=== PATIENT | female | born 1940 | race Hispanic/Latino ===

== ENCOUNTER 2019-01-30 14:30 | Emergency (ER) | payer OTHER ==
[2019-01-30] MEDS ORDERED: TETANUS/DIPHTHERIA TOXOID [ADULT] 0.5 ML VIAL IM ONE (15:05)
== END 2019-01-30 15:56 | disposition home or self-care (01) ==
LOC: EDH 14:30
DX: S93.602A Unspecified sprain of left foot, initial encounter (principal); S93.402A Sprain of unspecified ligament of left ankle, initial encounter; S80.02XA Contusion of left knee, initial encounter; S50.812A Abrasion of left forearm, initial encounter; I10 Essential (primary) hypertension; E78.5 Hyperlipidemia, unspecified; Z88.6 Allergy status to analgesic agent; W18.39XA Other fall on same level, initial encounter; Y93.89 Activity, other specified; Y92.89 Other specified places as the place of occurrence of the external cause; Y99.8 Other external cause status
CPT/HCPCS: 73610; 73630; 90471; 90714

== ENCOUNTER 2019-04-21 15:18 | Inpatient (IN) | payer OTHER, MEDICARE ==
[~2019-04-21] VITALS: Ht 165.1 cm; Wt 50.0 kg
[2019-04-21 16:27] LABS: BASOPHILS % (AUTO) 0.5 % (0.0-5.0); EOSINOPHILS % (AUTO) 0.9 % (0.0-8.0); HEMATOCRIT 40.7 % (36-48); LYMPHOCYTES % (AUTO) 38.9 % (21.0-51.0); MEAN CORPUSCULAR HEMOGLOBIN 27.9 pg (27.0-33.0); MEAN CORPUSCULAR HGB CONC 33.2 g/dL (32.0-36.0); MONOCYTES % (AUTO) 10.2 % (3.0-13.0); NEUTROPHILS % (AUTO) 49.5 % (40.0-77.0); PLATELET COUNT (AUTO) 197 K/uL (130-400); RED BLOOD CELL COUNT(AUTO) 4.84 MIL/uL (4.00-5.50); RED CELL DISTRIBUTION WIDTH 13.5 % (11.0-15.5)
[2019-04-21 16:36] LABS: INR 0.93 (0.85-1.15); PARTIAL THROMBOPLASTIN TIME 29.1 SEC (26.3-35.5); PROTHROMBIN TIME 9.8 SEC (9.6-11.6)
[2019-04-21 16:47] LABS: ALBUMIN 3.9 g/dL (3.5-5.0); BILIRUBIN,TOTAL 0.4 mg/dL (0.2-1.0); CREATININE 0.8 mg/dL (0.5-1.5); POTASSIUM 3.8 mmol/L (3.5-5.1); TOTAL PROTEIN, SERUM 7.7 g/dL (6.0-8.3)
[2019-04-21] MEDS ORDERED: METOPROLOL TARTRATE 1 MG/ML 5ML VIAL IV ONE (16:55)
[2019-04-21] MEDS ORDERED: LABETALOL HCL 5 MG/ML 20ML VIAL IV ONE (18:23)
[2019-04-21 20:17] VITALS: BP 169/91
[2019-04-21] MEDS ORDERED: TRAM50TA4 PO (21:18)
[2019-04-21] MEDS ORDERED: ATOR10 PO (21:20)
[2019-04-21] MEDS ORDERED: LOSA50TA64 PO (21:20)
[2019-04-21] MEDS ORDERED: PANT40TA PO (21:20)
[2019-04-21] MEDS: TRAMADOL HCL 50 MG TABLET PO PRN (21:30)
[2019-04-21 23:20] VITALS: BP 162/71
[2019-04-21] MEDS ORDERED: ALPRAZOLAM 0.25 MG TABLET ONE (23:52)
[2019-04-22] MEDS ORDERED: ONDANSETRON HCL 4 MG/2 ML VIAL IVP PRN (00:15)
[2019-04-22] MEDS: SODIUM CHLORIDE 0.9% 1000ML 1,000 ML IV SCH ×2 (00:15→12:45)
[2019-04-22] MEDS ORDERED: LABETALOL 20 MG/4 ML DISP.SYRIN IV PRN (00:15)
[2019-04-22 04:28] VITALS: BP 148/94
[2019-04-22 04:56] LABS: HEMATOCRIT 38.4 % (36-48); MEAN CORPUSCULAR HEMOGLOBIN 27.9 pg (27.0-33.0); MEAN CORPUSCULAR HGB CONC 33.1 g/dL (32.0-36.0); PLATELET COUNT (AUTO) 178 K/uL (130-400); RED BLOOD CELL COUNT(AUTO) 4.56 MIL/uL (4.00-5.50); RED CELL DISTRIBUTION WIDTH 13.5 % (11.0-15.5); WHITE BLOOD COUNT (AUTO) 5.4 K/uL (4.8-10.8)
[2019-04-22 05:34] LABS: ALBUMIN 3.4 g/dL (3.5-5.0); BILIRUBIN,TOTAL 0.4 mg/dL (0.2-1.0); CREATININE 0.7 mg/dL (0.5-1.5); MAGNESIUM 2.1 mg/dL (1.80-2.40); PHOSPHORUS 3.4 mg/dL (2.5-4.9); POTASSIUM 4.3 mmol/L (3.5-5.1); TOTAL PROTEIN, SERUM 6.6 g/dL (6.0-8.3)
[2019-04-22] MEDS: TRAMADOL HCL 50 MG TABLET PO PRN (07:48)
[2019-04-22] MEDS: FAMOTIDINE/PF 20 MG/2 ML VIAL IV SCH (07:48)
[2019-04-22] MEDS: LOSARTAN 50 MG TABLET PO SCH (07:48)
[2019-04-22] MEDS: ATORVASTATIN CALCIUM 40 MG TABLET PO SCH (07:48)
--- NOTE | 2019-04-22 07:55 | NUR ---
medicated for discomfort to legs.
[2019-04-22 08:00] VITALS: BP 152/88
[2019-04-22 11:47] VITALS: BP 146/79
[2019-04-22] MEDS: ALPRAZOLAM 0.25 MG TABLET PO PRN (16:17)
--- NOTE | 2019-04-22 16:45 | NUR ---
SAAD MET W PT WITH GRANDDAUGHTER GARFIELD AT BEDSIDE LIVES WITH SPOUSE AND ANOTHER GRANDDAUGHTER YOSVANY WHO IS THE GUARDIAN OF BOTH GRANDPARENTS. SPOUSE HAS ALL DME; PT USES A CANE EVERYONE AND A WHILE. NO STAIRS IN THE HOME, BAHTROOM SAFE AND ACCESSIBLE. LAST VISITED PMD YESTERDAY WHO SENT PT TO HOSPITAL. PT EXHIBITING SIGNS OF ASPIRATIONS, LITTLE COUGHING WITH FOOD. PRIMARY RN INFORMED, FOOD REMOVED. JUAN REN CM TO FOLLOW FOR DC NEEDS Addendum: 04/22/19 at 1748 by PARTHA PACE RN CM Amended: Links added.
[2019-04-22 17:00] VITALS: BP 177/90
--- NOTE | 2019-04-22 17:31 | NUR ---
2-D ECHO WITH BUBBLE NOW COMPLETE, ALSO HAD MRI OF HEAD A LITTLE EARLIER. NO OFFICIAL REPORT YET. DR. VALDES WAS SEND A TEXT MESSAGE BY GIS ANALYST NILAY TO GIVE UPDATE ON PT. STATUS.
--- NOTE | 2019-04-22 18:50 | NUR ---
SPOKE WITH PERSON HOG FEEDER FOR BENCHMARK AND ENDORSED MRI REPORT, AM TOLD FINDINGS INSIGNIFICANT AND COULD TELL DR. VALDES TOMORROW.
[2019-04-22 19:18] VITALS: BP 157/83
--- NOTE | 2019-04-22 20:55 | NUR ---
Left sided facial drooping Informed Saman Edwards NP for benchmark that patient had some left sided facial drooping and was having difficulty with swallowing her food. 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 He stated to keep SBP greater than 160 and to only give PRN BP meds if blood pressure is greater than 200.
[2019-04-23] VITALS (7 sets, daily range): BP systolic 153–191; BP diastolic 92–101
[2019-04-23] MEDS: SODIUM CHLORIDE 0.9% 1000ML 1,000 ML IV SCH ×2 (02:55→16:15)
[2019-04-23] MEDS: ATORVASTATIN CALCIUM 40 MG TABLET PO SCH (09:59)
[2019-04-23] MEDS: FAMOTIDINE/PF 20 MG/2 ML VIAL IV SCH (10:07)
[2019-04-23] MEDS: LOSARTAN 50 MG TABLET PO SCH (10:07)
--- NOTE | 2019-04-23 12:00 | NUR ---
uche called for update.read mri report echo and carotid to md via phone. per md recommend cardiology for anticouagulant choice .
[2019-04-24] VITALS (8 sets, daily range): BP systolic 112–196; BP diastolic 63–104
[2019-04-24] MEDS: HYDRALAZINE HCL 20 MG/ML VIAL IV PRN ×2 (03:52→14:35)
[2019-04-24] MEDS: ALPRAZOLAM 0.25 MG TABLET PO PRN ×3 (04:57→22:15)
[2019-04-24] MEDS: SODIUM CHLORIDE 0.9% 1000ML 1,000 ML IV SCH ×2 (05:01→18:55)
[2019-04-24] MEDS: TRAMADOL HCL 50 MG TABLET PO PRN ×2 (06:41→13:35)
[2019-04-24] MEDS ORDERED: LABETALOL 20 MG/4 ML DISP.SYRIN IV SCH (07:30)
[2019-04-24 08:36] LABS: CHOLESTEROL 153 mg/dL (<200); CREATINE KINASE, TOTAL 42 U/L (21-232); HDL CHOLESTEROL 31 mg/dL (35-85); LDL DIRECT 95 mg/dL (0-99); MYOGLOBIN 43 ng/mL (10-92); TRIGLYCERIDES 97 mg/dL (30-200); TROPONIN I < 0.04 ng/mL (0.00-0.06)
[2019-04-24] MEDS: ASPIRIN 81 MG EC TAB PO SCH ×2 (09:00→09:37)
[2019-04-24] MEDS ORDERED: METOPROLOL TARTRATE 25 MG TAB PO SCH (09:00)
[2019-04-24] MEDS ORDERED: ISOSORBIDE MONO 30MG TAB SR PO SCH (09:00)
[2019-04-24] MEDS ORDERED: LABETALOL HCL 5 MG/ML 20ML VIAL IV SCH (09:15)
[2019-04-24] MEDS: LOSARTAN 100 MG TABLET PO SCH (09:35)
[2019-04-24] MEDS: CLOPIDOGREL BISULFATE 75 MG TAB PO SCH (09:37)
[2019-04-24] MEDS: FAMOTIDINE/PF 20 MG/2 ML VIAL IV SCH (09:37)
--- NOTE | 2019-04-24 11:52 | NUR ---
DYSPHAGIA EVAL COMPLETE. -S/S OF ASPIRATION OBSERVED. RECOMMEND MECHANICAL SOFT GROUND TEXTURE AND THIN LIQUIDS. Addendum: 04/24/[address] JESSICA Amended: Links added.
[2019-04-24] MEDS ORDERED: AMLODIPINE BESYLATE 5 MG TAB PO SCH (15:30)
[2019-04-24] MEDS ORDERED: ACETAMINOPHEN 325 MG TAB ONE (17:14)
[2019-04-24] MEDS ORDERED: ATORVASTATIN CALCIUM 20 MG TABLET PO SCH (21:00)
[2019-04-24] MEDS: METOPROLOL TARTRATE 25 MG TAB PO SCH (22:16)
[2019-04-24] MEDS: ACETAMINOPHEN 325 MG TAB PO PRN (22:17)
[2019-04-25 00:20] VITALS: BP 143/75
[2019-04-25 04:04] VITALS: BP 151/86
[2019-04-25] MEDS: ACETAMINOPHEN 325 MG TAB PO PRN (07:40)
[2019-04-25] MEDS ORDERED: ATOR40TA69 PO (07:55)
[2019-04-25] MEDS ORDERED: CLOP75TA32 PO (07:55)
[2019-04-25] MEDS ORDERED: LOSA100T58 PO (07:55)
[2019-04-25] MEDS ORDERED: AMLO5TAB9 PO (07:55)
[2019-04-25] MEDS ORDERED: ASPI-555 PO (07:55)
[2019-04-25] MEDS ORDERED: METO-391 PO (07:55)
[2019-04-25 08:00] VITALS: BP 168/93
[2019-04-25] MEDS ORDERED: AMLODIPINE BESYLATE 5 MG TAB PO SCH (09:00)
[2019-04-25] MEDS: FAMOTIDINE/PF 20 MG/2 ML VIAL IV SCH (10:04)
[2019-04-25] MEDS: ASPIRIN 81 MG EC TAB PO SCH (10:04)
[2019-04-25] MEDS: LOSARTAN 100 MG TABLET PO SCH (10:05)
[2019-04-25] MEDS: CLOPIDOGREL BISULFATE 75 MG TAB PO SCH (10:05)
[2019-04-25] MEDS: METOPROLOL TARTRATE 25 MG TAB PO SCH ×2 (10:06→14:54)
[2019-04-25 12:00] VITALS: BP 154/83
== END 2019-04-25 18:05 | disposition home or self-care (01) | DRG 65 ==
LOC: EDH 15:18 → EDHIP 18:14 → OBSVTOIN 18:14 → 3AH 19:59
PROVIDERS: ADMIT Internal Medicine Critical Care Medicine; ATTEND Internal Medicine Critical Care Medicine
DX: I63.9 Cerebral infarction, unspecified (principal); I16.1 Hypertensive emergency; I25.110 Atherosclerotic heart disease of native coronary artery with unstable angina pectoris; Q21.1 Atrial septal defect; I11.9 Hypertensive heart disease without heart failure; K21.9 Gastro-esophageal reflux disease without esophagitis; E78.5 Hyperlipidemia, unspecified; Z79.82 Long term (current) use of aspirin; Z79.899 Other long term (current) drug therapy; Z88.6 Allergy status to analgesic agent; Z90.710 Acquired absence of both cervix and uterus; Z88.0 Allergy status to penicillin
CPT/HCPCS: 36415; 70450; 70551; 71045; 80053; 80061; 82550; 83735; 83874; 84100; 84484; 85025; 85027; 85610; 85730; 92610; 93005; 93306; 93880; 97039; G0378; J0360; J3490

== ENCOUNTER 2019-05-13 07:24 | Emergency (ER) | payer OTHER, MEDICARE ==
[~2019-05-13 07:24] MED LIST: AMLO5TAB9 PO; ASPI-555 PO; ATOR40TA69 PO; CLOP75TA32 PO; LOSA100T58 PO; METO-391 PO; PANT40TA PO; TRAM50TA4 PO
[2019-05-13 08:04] LABS: BASOPHILS % (AUTO) 0.6 % (0.0-5.0); HEMATOCRIT 40.2 % (36-48); LYMPHOCYTES % (AUTO) 32.5 % (21.0-51.0); MEAN CORPUSCULAR HEMOGLOBIN 27.8 pg (27.0-33.0); MEAN CORPUSCULAR HGB CONC 33.6 g/dL (32.0-36.0); MEAN CORPUSCULAR VOLUME 82.9 fL (79-99); MONOCYTES % (AUTO) 9.1 % (3.0-13.0); NEUTROPHILS % (AUTO) 56.8 % (40.0-77.0); NUCLEATED RED BLOOD CELLS 0.1 % (0.0-0.19); PLATELET COUNT (AUTO) 232 K/uL (130-400); RED BLOOD CELL COUNT(AUTO) 4.85 MIL/uL (4.00-5.50); RED CELL DISTRIBUTION WIDTH 13.1 % (11.0-15.5); WHITE BLOOD COUNT (AUTO) 5.4 K/uL (4.8-10.8)
[2019-05-13 08:12] LABS: CREATININE 0.7 mg/dL (0.5-1.5); POTASSIUM 4.8 mmol/L (3.5-5.1)
[2019-05-13 08:14] LABS: INR 0.94 (0.85-1.15); PARTIAL THROMBOPLASTIN TIME 27.3 SEC (26.3-35.5); PROTHROMBIN TIME 9.9 SEC (9.6-11.6)
[2019-05-13 08:18] LABS: ALBUMIN 3.9 g/dL (3.5-5.0); BILIRUBIN,TOTAL 0.5 mg/dL (0.2-1.0); TOTAL PROTEIN, SERUM 7.7 g/dL (6.0-8.3)
[2019-05-13 08:19] LABS: B-TYPE NATRIURETIC PEPTIDE 194 pg/mL (0-100)
[2019-05-13 09:18] LABS: APPEARANCE,URINE Clear (CLEAR); BILIRUBIN,URINE Negative (NEGATIVE); COLOR,URINE Yellow (YELLOW); GLUCOSE, URINE (UA) Negative (NEGATIVE); KETONES,URINE Negative (NEGATIVE); LEUKOCYTE ESTERASE ,URINE Trace (NEGATIVE); NITRATE,URINE Negative (NEGATIVE); OCCULT BLOOD,URINE Negative (NEGATIVE); PH,URINE 8.5 (5.0-8.0); PROTEIN,URINE Negative (NEGATIVE); UROBILINOGEN,URINE 0.2 mg/dL (0.2-1.0)
[2019-05-13 09:37] LABS: BACTERIA,URINE Rare /HPF (None Seen); RBC,URINE 0-1 /HPF (0-1); SQUAMOUS EPITHELIAL CELL,UR Rare /HPF (0-2); WBC,URINE 0-1 /HPF (0-1)
[2019-05-13] MEDS ORDERED: SODIUM CHLORIDE 0.9% 1000ML 1,000 ML IV ONE (09:52)
== END 2019-05-13 11:40 | disposition home or self-care (01) ==
LOC: EDH 07:24
DX: E86.0 Dehydration (principal); R55 Syncope and collapse; R20.2 Paresthesia of skin; G47.00 Insomnia, unspecified; E78.5 Hyperlipidemia, unspecified; I10 Essential (primary) hypertension; Z88.0 Allergy status to penicillin; Z90.710 Acquired absence of both cervix and uterus; Z90.49 Acquired absence of other specified parts of digestive tract
CPT/HCPCS: 36415; 70450; 71045; 72125; 80053; 81001; 82550; 83880; 84484; 85025; 85610; 85730; 93005; 96360; 99285; J7030

== ENCOUNTER 2019-06-10 15:36 | Emergency (ER) | payer OTHER, MEDICARE ==
[2019-06-10] MEDS ORDERED: MORPHINE SULFATE 4 MG/1ML SYG ONE (16:47)
[2019-06-10] MEDS ORDERED: ONDANSETRON HCL 4 MG/2 ML VIAL ONE (16:48)
[2019-06-10 17:41] LABS: BASOPHILS % (AUTO) 0.2 % (0.0-5.0); EOSINOPHILS % (AUTO) 1.8 % (0.0-8.0); LYMPHOCYTES % (AUTO) 34.8 % (21.0-51.0); MEAN CORPUSCULAR HEMOGLOBIN 27.9 pg (27.0-33.0); MEAN CORPUSCULAR VOLUME 84.7 fL (79-99); MONOCYTES % (AUTO) 8.8 % (3.0-13.0); NEUTROPHILS % (AUTO) 54.4 % (40.0-77.0); NUCLEATED RED BLOOD CELLS 0.1 % (0.0-0.19); PLATELET COUNT (AUTO) 231 K/uL (130-400); RED BLOOD CELL COUNT(AUTO) 4.49 MIL/uL (4.00-5.50); RED CELL DISTRIBUTION WIDTH 13.1 % (11.0-15.5); WHITE BLOOD COUNT (AUTO) 6.1 K/uL (4.8-10.8)
[2019-06-10 17:49] LABS: CREATININE 0.8 mg/dL (0.5-1.5); POTASSIUM 3.5 mmol/L (3.5-5.1)
[2019-06-10 17:54] LABS: ALBUMIN 3.8 g/dL (3.5-5.0); BILIRUBIN,TOTAL 0.5 mg/dL (0.2-1.0); TOTAL PROTEIN, SERUM 7.3 g/dL (6.0-8.3)
[2019-06-10] MEDS ORDERED: IOHEXOL-350 75 ML VIAL IV ONE (18:32)
[2019-06-10] MEDS ORDERED: HYDRALAZINE HCL 20 MG/ML VIAL ONE (19:21)
[2019-06-10 19:45] LABS: APPEARANCE,URINE Clear (CLEAR); BILIRUBIN,URINE Negative (NEGATIVE); COLOR,URINE Yellow (YELLOW); GLUCOSE, URINE (UA) Negative (NEGATIVE); KETONES,URINE Negative (NEGATIVE); LEUKOCYTE ESTERASE ,URINE Small (NEGATIVE); NITRATE,URINE Negative (NEGATIVE); OCCULT BLOOD,URINE Negative (NEGATIVE); PROTEIN,URINE Negative (NEGATIVE); UROBILINOGEN,URINE 0.2 mg/dL (0.2-1.0)
[2019-06-10 19:55] LABS: BACTERIA,URINE Rare /HPF (None Seen); RBC,URINE 0-1 /HPF (0-1); SQUAMOUS EPITHELIAL CELL,UR Rare /HPF (0-2); WBC,URINE 0-1 /HPF (0-1)
== END 2019-06-10 20:11 | disposition home or self-care (01) ==
LOC: EDH 15:36
DX: S20.212A Contusion of left front wall of thorax, initial encounter (principal); I10 Essential (primary) hypertension; E78.5 Hyperlipidemia, unspecified; Z88.6 Allergy status to analgesic agent; Z88.0 Allergy status to penicillin; Z90.710 Acquired absence of both cervix and uterus; Z90.49 Acquired absence of other specified parts of digestive tract; W18.39XA Other fall on same level, initial encounter; Y93.01 Activity, walking, marching and hiking; Y92.89 Other specified places as the place of occurrence of the external cause; Y99.8 Other external cause status
CPT/HCPCS: 36415; 71260; 74177; 80053; 81001; 84484; 85025; 93005; 96374; 96375; 99285; J0360; J2270; J2405; Q9967

== ENCOUNTER 2020-05-21 21:23 | Emergency (ER) | payer OTHER, MEDICARE ==
[~2020-05-21 21:23] MED LIST changes: -ASPI-555 PO; +ASPI-556 PO
[2020-05-21 21:43] LABS: BASOPHILS % (AUTO) 0.3 % (0.0-5.0); EOSINOPHILS % (AUTO) 0.3 % (0.0-8.0); HEMATOCRIT 39.8 % (36-48); LYMPHOCYTES % (AUTO) 23.2 % (21.0-51.0); MEAN CORPUSCULAR HEMOGLOBIN 27.9 pg (27.0-33.0); MEAN CORPUSCULAR HGB CONC 33.4 g/dL (32.0-36.0); MEAN CORPUSCULAR VOLUME 83.4 fL (79-99); MONOCYTES % (AUTO) 8.5 % (3.0-13.0); NEUTROPHILS % (AUTO) 67.4 % (40.0-77.0); PLATELET COUNT (AUTO) 246 K/uL (130-400); RED BLOOD CELL COUNT(AUTO) 4.77 MIL/uL (4.00-5.50); RED CELL DISTRIBUTION WIDTH 12.9 % (11.0-15.5); WHITE BLOOD COUNT (AUTO) 9.4 K/uL (4.8-10.8)
[2020-05-21 21:53] LABS: CREATININE 0.8 mg/dL (0.5-1.5); POTASSIUM 3.6 mmol/L (3.5-5.1)
[2020-05-21 21:57] LABS: BILIRUBIN,TOTAL 0.4 mg/dL (0.2-1.0); TOTAL PROTEIN, SERUM 7.5 g/dL (6.0-8.3)
[2020-05-21] MEDS ORDERED: ONDANSETRON HCL 4 MG/2 ML VIAL ONE (21:59)
[2020-05-21] MEDS ORDERED: MORPHINE SULFATE 4 MG/1ML SYG ONE (22:00)
[2020-05-21] MEDS ORDERED: HYDRALAZINE HCL 20 MG/ML VIAL ONE (22:37)
[2020-05-21 22:44] LABS: APPEARANCE,URINE Clear (CLEAR); BILIRUBIN,URINE Negative (NEGATIVE); COLOR,URINE Yellow (YELLOW); GLUCOSE, URINE (UA) Negative (NEGATIVE); KETONES,URINE Negative (NEGATIVE); LEUKOCYTE ESTERASE ,URINE Negative (NEGATIVE); NITRATE,URINE Negative (NEGATIVE); OCCULT BLOOD,URINE Negative (NEGATIVE); PH,URINE 7.5 (5.0-8.0); PROTEIN,URINE Negative (NEGATIVE); UROBILINOGEN,URINE 0.2 mg/dL (0.2-1.0)
== END 2020-05-22 00:55 | disposition home or self-care (01) ==
LOC: EDH 21:23
DX: K59.00 Constipation, unspecified (principal); I10 Essential (primary) hypertension; E78.5 Hyperlipidemia, unspecified; Z90.49 Acquired absence of other specified parts of digestive tract; Z90.710 Acquired absence of both cervix and uterus; Z88.0 Allergy status to penicillin; Z88.6 Allergy status to analgesic agent
CPT/HCPCS: 36415; 74176; 80053; 81003; 83690; 84484; 85025; 93005; 96374; 96375; 99285; J0360; J2270; J2405

== ENCOUNTER → 2021-01-25 | Outpatient (CLI) | payer OTHER, MEDICARE ==
[~2021-01-25] MED LIST changes: +AMLO-257 PO; -AMLO5TAB9 PO
== END | disposition home or self-care (01) ==
LOC: RAH 12:58
PROVIDERS: ATTEND Family Medicine
DX: R59.0 Localized enlarged lymph nodes (principal); R07.0 Pain in throat
CPT/HCPCS: 76536

== ENCOUNTER 2021-05-02 05:46 | Emergency (ER) | payer OTHER, MEDICARE ==
[~2021-05-02] VITALS: Ht 157.5 cm; Wt 64.4 kg
[2021-05-02 05:57] VITALS: BP 137/73
[2021-05-02] MEDS ORDERED: FAMOTIDINE 20MG VIAL IV ONE (06:00)
[2021-05-02 06:02] LABS: BASOPHILS % (AUTO) 0.1 % (0.0-5.0); EOSINOPHILS % (AUTO) 0.1 % (0.0-8.0); HEMATOCRIT 36.8 % (36-48); LYMPHOCYTES % (AUTO) 27.6 % (21.0-51.0); MEAN CORPUSCULAR HGB CONC 33.4 g/dL (32.0-36.0); MEAN CORPUSCULAR VOLUME 83.6 fL (79-99); MONOCYTES % (AUTO) 7.1 % (3.0-13.0); PLATELET COUNT (AUTO) 226 K/uL (130-400); RED CELL DISTRIBUTION WIDTH 13.4 % (11.0-15.5); WHITE BLOOD COUNT (AUTO) 6.7 K/uL (4.8-10.8)
[2021-05-02 06:15] LABS: CREATININE 0.8 mg/dL (0.5-1.5); POTASSIUM 3.5 mmol/L (3.5-5.1)
[2021-05-02 06:21] LABS: ALBUMIN 3.8 g/dL (3.5-5.0); BILIRUBIN,TOTAL 0.5 mg/dL (0.2-1.0); TOTAL PROTEIN, SERUM 6.9 g/dL (6.0-8.3)
[2021-05-02 06:25] LABS: APPEARANCE,URINE Clear (CLEAR); BILIRUBIN,URINE Negative (NEGATIVE); COLOR,URINE Yellow (YELLOW); GLUCOSE, URINE (UA) Negative (NEGATIVE); KETONES,URINE Negative (NEGATIVE); LEUKOCYTE ESTERASE ,URINE Small (NEGATIVE); NITRATE,URINE Negative (NEGATIVE); OCCULT BLOOD,URINE Negative (NEGATIVE); PH,URINE 7.5 (5.0-8.0); PROTEIN,URINE Negative (NEGATIVE); UROBILINOGEN,URINE 0.2 mg/dL (0.2-1.0)
[2021-05-02 06:57] LABS: RBC,URINE 0-1 /HPF (0-1)
[2021-05-02 06:58] LABS: BACTERIA,URINE Rare /HPF (None Seen); SQUAMOUS EPITHELIAL CELL,UR Few /HPF (0-2)
[2021-05-02] MEDS ORDERED: ALPR-409 PO (07:38)
[2021-05-02 08:06] VITALS: BP 136/75
== END 2021-05-02 08:20 | disposition home or self-care (01) ==
LOC: EDH 05:46
DX: F41.1 Generalized anxiety disorder (principal); R00.2 Palpitations; R25.1 Tremor, unspecified; R07.89 Other chest pain; I10 Essential (primary) hypertension; I25.10 Atherosclerotic heart disease of native coronary artery without angina pectoris; E78.00 Pure hypercholesterolemia, unspecified; Z88.0 Allergy status to penicillin; Z88.6 Allergy status to analgesic agent; Z79.899 Other long term (current) drug therapy
CPT/HCPCS: 36415; 71045; 80053; 81001; 84484 ×2; 85025; 93005 ×2; 96374; 99285; J3490

== ENCOUNTER 2021-06-08 17:50 | Emergency (ER) | payer OTHER, MEDICARE ==
[~2021-06-08] VITALS: Ht 157.5 cm; Wt 56.7 kg
[~2021-06-08 17:50] MED LIST changes: +ALPR-409 PO
[2021-06-08 18:24] VITALS: BP 160/92
[2021-06-08] MEDS ORDERED: ASPIRIN 325MG TAB PO ONE (19:00)
[2021-06-08 19:10] LABS: BASOPHILS % (AUTO) 0.3 % (0.0-5.0); EOSINOPHILS % (AUTO) 0.1 % (0.0-8.0); HEMATOCRIT 40.5 % (36-48); LYMPHOCYTES % (AUTO) 27.8 % (21.0-51.0); MEAN CORPUSCULAR HEMOGLOBIN 28.2 pg (27.0-33.0); MEAN CORPUSCULAR HGB CONC 33.1 g/dL (32.0-36.0); MEAN CORPUSCULAR VOLUME 85.1 fL (79-99); MONOCYTES % (AUTO) 6.8 % (3.0-13.0); NEUTROPHILS % (AUTO) 64.7 % (40.0-77.0); PLATELET COUNT (AUTO) 240 K/uL (130-400); RED BLOOD CELL COUNT(AUTO) 4.76 MIL/uL (4.00-5.50); RED CELL DISTRIBUTION WIDTH 13.2 % (11.0-15.5); WHITE BLOOD COUNT (AUTO) 7.8 K/uL (4.8-10.8)
[2021-06-08 19:11] LABS: APPEARANCE,URINE Clear (CLEAR); BILIRUBIN,URINE Negative (NEGATIVE); COLOR,URINE Yellow (YELLOW); GLUCOSE, URINE (UA) Negative (NEGATIVE); KETONES,URINE Negative (NEGATIVE); LEUKOCYTE ESTERASE ,URINE Small (NEGATIVE); NITRATE,URINE Negative (NEGATIVE); OCCULT BLOOD,URINE Negative (NEGATIVE); PH,URINE 7.5 (5.0-8.0); PROTEIN,URINE Negative (NEGATIVE); UROBILINOGEN,URINE 0.2 mg/dL (0.2-1.0)
[2021-06-08 19:19] LABS: BACTERIA,URINE Few /HPF (None Seen); MUCUS,URINE Rare LPF (None Seen); RBC,URINE 0-1 /HPF (0-1); SQUAMOUS EPITHELIAL CELL,UR 0-2 /HPF (0-2)
[2021-06-08 19:21] LABS: CREATININE 0.7 mg/dL (0.5-1.5); POTASSIUM 3.8 mmol/L (3.5-5.1)
[2021-06-08 19:27] LABS: ALBUMIN 3.9 g/dL (3.5-5.0); BILIRUBIN,TOTAL 0.3 mg/dL (0.2-1.0); TOTAL PROTEIN, SERUM 7.6 g/dL (6.0-8.3)
[2021-06-08 19:29] LABS: INR 0.95 (0.85-1.15); PROTHROMBIN TIME 10.4 SEC (9.6-11.6)
[2021-06-08 19:31] LABS: PARTIAL THROMBOPLASTIN TIME 24.2 SEC (26.3-35.5)
[2021-06-08 19:42] LABS: B-TYPE NATRIURETIC PEPTIDE 75 pg/mL (0-100)
[2021-06-08 20:29] VITALS: BP 170/82
[2021-06-08] MEDS ORDERED: CLOPIDOGREL 75MG TAB PO SCH (22:30)
[2021-06-08 22:47] VITALS: BP 178/82
[2021-06-08 23:48] VITALS: BP 170/92
[2021-06-09 01:20] VITALS: BP 168/86
[2021-06-09 02:33] VITALS: BP 113/63
== END 2021-06-09 03:06 | disposition short-term general hospital (02) ==
LOC: EDH 17:50
DX: G45.9 Transient cerebral ischemic attack, unspecified (principal); R53.1 Weakness; I10 Essential (primary) hypertension; Z20.822 Contact with and (suspected) exposure to COVID-19; Z79.02 Long term (current) use of antithrombotics/antiplatelets; Z79.82 Long term (current) use of aspirin; Z79.899 Other long term (current) drug therapy; Z88.0 Allergy status to penicillin; Z88.6 Allergy status to analgesic agent
CPT/HCPCS: 36415; 70450; 70553; 71045; 80053; 81001; 82550; 82948 ×2; 83721; 83880; 84484; 85025; 85610; 85730; 87635; 99285; C9803

== ENCOUNTER 2025-01-29 22:33 | Emergency (ER) | payer OTHER, MEDICAID ==
[~2025-01-29] VITALS: Ht 162.6 cm; Wt 40.8 kg
[~2025-01-29 22:33] MED LIST changes: -ALPR-409 PO; +ASPI-1197 PO; -ASPI-556 PO; +ATOR10 PO; -ATOR40TA69 PO; -CLOP75TA32 PO; +FISH1CAP20 PO; +FOLI0.8T22 PO; +LEVO-70 PO; -LOSA100T58 PO; +MELA3CAP2 PO; -METO-391 PO; +METO25TA6 PO; +MULT-1192 PO; +POLY17PO4 PO; +RIVA2.5T PO
[2025-01-29 23:00] VITALS: TEMP 98.9
[2025-01-29 23:13] LABS: BASOPHILS # (AUTO) 0.03 K/uL (0.00-0.20); BASOPHILS % (AUTO) 0.3 % (0.0-5.0); EOSINOPHILS # (AUTO) 0.06 K/uL (0.00-0.70); EOSINOPHILS % (AUTO) 0.6 % (0.0-8.0); IMMATURE GRANULOCYTE ABSOLUTE 0.08 K/uL (0-1); LYMPHOCYTES # (AUTO) 1.6 K/uL (1.0-4.8); LYMPHOCYTES % (AUTO) 15.6 % (21.0-51.0); MEAN CORPUSCULAR HEMOGLOBIN 24.5 pg (27.0-33.0); MONOCYTES # (AUTO) 1.6 K/uL (0.1-1.0); NEUTROPHILS # (AUTO) 6.8 K/uL (1.8-7.7); NEUTROPHILS % (AUTO) 66.7 % (40.0-77.0); PLATELET COUNT (AUTO) 265 K/uL (130-400); RED BLOOD CELL COUNT(AUTO) 3.67 MIL/uL (4.00-5.50); RED CELL DISTRIBUTION WIDTH 17.2 % (11.0-15.5); WHITE BLOOD COUNT (AUTO) 10.2 K/uL (4.8-10.8)
[2025-01-29] MEDS: 0.9%NACL 1000ML 1,000 ML IV STA (23:14)
[2025-01-29 23:24] LABS: CREATININE 0.6 mg/dL (0.5-1.0)
[2025-01-29 23:28] LABS: ALBUMIN 2.1 g/dL (3.5-5.0); BILIRUBIN,DIRECT 0.1 mg/dL (0.0-0.3); BILIRUBIN,TOTAL 0.3 mg/dL (0.2-1.0); TOTAL PROTEIN, SERUM 5.1 g/dL (6.0-8.3)
--- NOTE | 2025-01-29 23:59 | NUR ---
EXTERNAL CATHETER PLACED, APPROXIMATELY 3 CM AREA OF SKIN BREAKDOWN NOTED TO CREASE OF R LABIA/GROIN AREA NOTED WITH REDNESS, PAINFUL TO TOUCH. WILL OBTAIN SKIN BARRIER CREAM AND APPLY TO AREA.
--- NOTE | 2025-01-30 00:12 | ERN ---
ED Note History of Present Illness Stated Complaint: DIARRHEA X 1 WEEK, WEAKNESS Chief Complaint: Diarrhea Time Seen by MD: 22:55 Time Seen by Midlevel: 22:58 Dictation: 84-YEAR-OLD FEMALE COMING IN VIA EMS FOR DIARRHEA. PATIENT STATES HE HAS HAD DIARRHEA FOR ONE WEEK. PATIENT WAS RECENTLY DISCHARGED ON 01/25, SHE WAS ADMITTED HERE FOR ACUTE CYSTITIS. PATIENT HAD PREVIOUS PYELONEPHRITIS AND HAS A STENT IN PLACE BY DR. SALAZAR SULLIVAN. PATIENT WAS DISCHARGED HOME ON 01/25 ON LEVOFLOXACIN. DENIES ANY BLOOD IN STOOL. Allergies: Coded Allergies: Penicillins (Unverified Allergy, Unknown, 06/10/19) Home Meds Active Scripts Levofloxacin (Levofloxacin) 500 Mg Tablet, 1 TAB PO DAILY for 5 Days, #5 TAB 0 Refills Prov:ASHLEY BENDER 01/26/25 Reported Medications Melatonin (Melatonin) 3 Mg Capsule, 1 CAP PO HS for 30 Days, #30 CAP 0 Refills 01/25/25 Polyethylene Glycol 3350 (Miralax) 17 Gram Powd.pack, 1 PACKET PO DAILY for constipation for 2 Days, #2 PACKET 0 Refills dissolve in water 01/25/25 Folic Acid/Vitamin B Comp W-C (Deann-Ebenezer Tablet) 0.8 Mg Tablet, 1 TAB PO DAILY for 30 Days, #30 TAB 0 Refills 01/25/25 Multivitamin (Multi-Vitamin Daily) 1 Each Tablet, 1 TAB PO DAILY for 30 Days, #30 TAB 0 Refills 01/25/25 Aspirin (Aspirin) 81 Mg Tab.chew, 81 MG PO DAILY, TAB.CHEW 01/25/25 Metoprolol Tartrate (Metoprolol Tartrate) 25 Mg Tablet, 1 TAB PO BID for 30 Days, #60 TAB 0 Refills 01/25/25 Tramadol Hcl (Tramadol HCl) 50 Mg Tablet, 50 MG PO DAILY, TAB 01/25/25 [place]-3 Fatty Acids/Fish Oil (Fish Oil 1000 mg/Cap) 300 Mg-1,000 Mg Capsule, 1 CAP PO BID for 30 Days, #90 CAP 0 Refills WITH MEALS 01/25/25 Atorvastatin Calcium (LIPITOR) 20 Mg Tab, 20 MG PO DAILY, TAB 11/23/24 Amlodipine Besylate (Amlodipine Besylate) 5 Mg Tablet, 5 MG PO DAILY, TAB 11/23/24 Rivaroxaban (Xarelto) 2.5 Mg Tablet, 2.5 MG PO BIDMEALS, TAB 11/23/24 Pantoprazole Sodium (Protonix) 40 Mg Tablet.dr, 40 MG PO DAILY, TAB 04/21/19 Discontinued Reported Medications Desipramine HCl (Desipramine HCl) 10 Mg Tablet, 10 MG PO HS, TAB 11/23/24 Doxepin HCl (Doxepin HCl) 10 Mg Capsule, 10 MG PO ACLUNCH, CAP 11/23/24 Vitamin B Complex (Vitamin B Complex) 1 Each Capsule, 1 EACH PO AD, CAP 11/23/24 Dicyclomine HCl (Dicyclomine HCl) 10 Mg Capsule, 10 MG PO QIDP, CAP 11/23/24 Diclofenac Sodium (Diclofenac Sodium) 1 % Gel..gram., 4 GM TP AD 11/23/24 [place]-3 Fatty Acids/Fish Oil (Fish Oil 1000 mg/Cap) 300 Mg-1,000 Mg Capsule, 1000 MG PO TID, CAP 11/23/24 Temazepam (Temazepam) 30 Mg Capsule, 1 CAP PO HSPRN PRN for sleep for 30 Days, #30 CAP 0 Refills 11/23/24 Tramadol Hcl (Tramadol HCl) 50 Mg Tablet, 50 MG PO Q6HPRN PRN for PAIN LEVEL 1 TO 5, TAB 04/21/19 Past Medical History Past Medical History: CVA, Hypertension Additional Past Medical Hx: VERTIGO, POOR CIRCULATION, PYELONEPHRITIS, HYDRONEPHROSIS Surgical History: Appendectomy, Hysterectomy Surgical History Other: LENS IMPLANT WITH UV FILTER, L URETER STENT Family History: Negative Social History: Negative History: Not Applicable Review of System Dictation CONSTITUTIONAL: COMPLAINING OF GENERALIZED BODY WEAKNESS EYES: NEGATIVE FOR INJURY, PAIN,REDNESS, AND DISCHARGE ENT: NEGATIVE FOR INJURY,PAIN OR SWELLING CARDIOVASCULAR: NEGATIVE FOR CHEST PAIN, PALPITATIONS, AND EDEMA RESPIRATORY: NEGATIVE FOR SHORTNESS OF BREATH, COUGH, AND WHEEZING, ABDOMEN/GI: COMPLAINING OF DIARRHEA FOR ONE WEEK BACK: NEGATIVE FOR INJURY AND PAIN : NEGATIVE FOR INJURY, BLEEDING AND DISCHARGE MS/EXTREMITY: NEGATIVE FOR INJURY AND DEFORMITY SKIN: NEGATIVE FOR RASH, AND DISCOLORATION NEURO: NEGATIVE FOR HEADACHE, WEAKNESS, NUMBNESS, TINGLING, AND SEIZURE PSYCH: NEGATIVE FOR SUICIDE IDEATION, HOMICIDAL IDEATION, AND HALLUCINATIONS Review of Systems: was completed Initial Vital Sign VS Vital Signs Date Time Temp Pulse Resp B/P (MAP) Pulse Ox O2 Delivery O2 Flow Rate FiO2 01/29/25 22:35 99.1 84 16 90/58 99 Room Air 0 01/29/25 23:00 21 Physical Exam Dictation GENERAL: AWAKE, ALERT, NAD HEAD/FACE: NORMOCEPHALIC, ATRAUMATIC EYES: PERRL, EOMI, VISION AT BASELINE ENT: ORAL CAVITY CLEAR, TMS CLEAR, NO SIGNS OF INFECTION NECK: TRACHEA MIDLINE, SUPPLE, NO NUCHAL RIGIDITY CARDIOVASCULAR: RRR, NORMAL S1/S2, NO MRGS, NO JVD RESPIRATORY: CTAB, NO RESPIRATORY DISTRESS, NO RALES OR WHEEZES ABDOMEN: SOFT, NON-TENDER, NON-DISTENDED, NORMAL BOWEL SOUNDS, NO GUARDING OR REBOUND. SKIN: WARM, DRY, NORMAL TURGOR, NO RASH MS/EXTREMITY: PULSES EQUAL, NO CYANOSIS, NEUROVASCULAR INTACT, FROM NEURO: COAX4, GCS 15, STRENGTH 5/5, CN 2-12 INTACT, NORMAL CEREBELLAR EXAM, NORMAL GAIT, PSYCH: NORMAL BEHAVIOR, MOOD, AND AFFECT NORMAL Results (Laboratory/Radiology) Laboratory/Radiology Laboratory Tests Test 01/29/25 22:49 White Blood Count 10.2 K/uL (4.8-10.8) Red Blood Count 3.67 MIL/uL (4.00-5.50) L Hemoglobin 9.0 g/dL (12.0-16.0) L Hematocrit 29.0 % (36-48) L Mean Corpuscular Volume 79.0 fL (79-99) Mean Corpuscular Hemoglobin 24.5 pg (27.0-33.0) L Mean Corpuscular Hemoglobin Concent 31.0 g/dL (32.0-36.0) L Red Cell Distribution Width 17.2 % (11.0-15.5) H Platelet Count 265 K/uL (130-400) Mean Platelet Volume 10.2 fL (7.5-10.5) Immature Granulocyte % (Auto) 0.8 % (0-1) Neutrophils (%) (Auto) 66.7 % (40.0-77.0) Lymphocytes (%) (Auto) 15.6 % (21.0-51.0) L Monocytes (%) (Auto) 16.0 % (3.0-13.0) H Eosinophils (%) (Auto) 0.6 % (0.0-8.0) Basophils (%) (Auto) 0.3 % (0.0-5.0) Neutrophils # (Auto) 6.8 K/uL (1.8-7.7) Lymphocytes # (Auto) 1.6 K/uL (1.0-4.8) Monocytes # (Auto) 1.6 K/uL (0.1-1.0) H Eosinophils # (Auto) 0.06 K/uL (0.00-0.70) Basophils # (Auto) 0.03 K/uL (0.00-0.20) Absolute Immature Granulocyte (auto 0.08 K/uL (0-1) Nucleated Red Blood Cells 0.0 % (0.0-0.19) Sodium Level 131 mmol/L (136-145) L Potassium Level 4.0 mmol/L (3.5-5.1) Chloride Level 99 mmol/L (101-111) L Carbon Dioxide Level 26 mmol/L (21-32) Blood Urea Nitrogen 14 mg/dL (7-18) Creatinine 0.6 mg/dL (0.5-1.0) Glomerular Filtration Rate Calc 87 mL/min (>90) Random Glucose 125 mg/dL (70-105) H Total Calcium 8.0 mg/dL (8.5-10.1) L Total Bilirubin 0.3 mg/dL (0.2-1.0) Direct Bilirubin 0.1 mg/dL (0.0-0.3) Aspartate Amino Transf (AST/SGOT) 21 U/L (10-37) Alanine Aminotransferase (ALT/SGPT) 12 U/L (12-78) Alkaline Phosphatase 79 U/L (50-136) Total Protein 5.1 g/dL (6.0-8.3) L Albumin 2.1 g/dL (3.5-5.0) L Lipase 6 U/L (16-77) L Labs Reviewed?: Yes ED Course ED Course Orders Procedure Category Date Status Time Cbc With Differential LAB 01/29/25 Complete 22:55 Basic Metabolic Panel LAB 01/29/25 Complete 22:55 Urinalysis Profile LAB 01/29/25 Logged 22:55 Lipase LAB 01/29/25 Complete 22:55 Hepatic Function Panel LAB 01/29/25 Complete 22:55 Stool Panel Gi By Pcr LAB 01/29/25 Logged 22:55 C Difficile A/B LAB 01/29/25 Logged 22:55 0.9%Nacl 1000ml (Ns PHA 01/29/25 Complete 1000ml) 23:00 Current Medications Medications (Trade) Dose Ordered Sig/Kaz Route PRN Reason Start Time Stop Time Status Last Admin Dose Admin Sodium Chloride 1,000 ml @ 1,000 mls/hr Q1H STAT IV 01/29/25 23:00 01/29/25 23:59 DC 01/29/25 23:14 Vital Signs Date Time Temp Pulse Resp B/P (MAP) Pulse Ox O2 Delivery O2 Flow Rate FiO2 01/30/25 00:57 87 17 107/59 98 Room Air* 0 21 01/29/25 23:41 83 19 106/54 98 Room Air* 0 21 01/29/25 23:00 99.0 89 19 94/53 98 Room Air* 0 21 01/29/25 22:35 99.1 84 16 90/58 99 Room Air 0 Medical Decision Making MDM 84-YEAR-OLD FEMALE COMING IN VIA EMS FOR DIARRHEA. PATIENT STATES HE HAS HAD DIARRHEA FOR ONE WEEK. PATIENT WAS RECENTLY DISCHARGED ON 01/25, SHE WAS ADMITTED HERE FOR ACUTE CYSTITIS. PATIENT HAD PREVIOUS PYELONEPHRITIS AND HAS A STENT IN PLACE BY DR. SALAZAR SULLIVAN. PATIENT WAS DISCHARGED HOME ON 01/25 ON LEVOFLOXACIN. DENIES ANY BLOOD IN STOOL. At 1:03 a.m. family member at bedside and patient decided that they want to leave the hospital. Family at visits it patient already got the fluids. Discussed with the patient and family member that were pain in the urine sample. They did not want to stay. And they refused to sign the AMA form. DX & DISP Disposition: AMA Departure Condition: Against Medical Advice Referrals: FERDERIC LEÓN MD (PCP) Time of Disposition: 01:07 I have reviewed the case, and I agree with, Diagnosis and Plan JACOB CHAN NP January 30, 2025 00:12
--- NOTE | 2025-01-30 00:33 | NUR ---
INFORMED PATIENT AND GRANDAUGHTER THE IMPORTANCE OF A URINE SAMPLE BEING COLLECTED TO DETERMINE DISPOSITION. EXTERNAL CATHETER HAS NOT COLLECTED ANY URINE, OFFERED A SECOND OPTION TO COLLECT SAMPLE WITH A STRAIGHT CATHETER, PATIENT AND GRANDAUGHTER BOTH REFUSED. ED PA MADE AWARE./SAMMY
[2025-01-30 00:57] VITALS: BP 107/59; PULSE 87; RESP 17; O2SAT 98
--- NOTE | 2025-01-30 01:00 | NUR ---
PATIENT ONOFRE REQUESTING TO LEAVE AT THIS TIME, INFORMED ONOFRE THAT SHE WOULD BE LEAVING AGAINST MEDICAL ADVICE SINCE THERE ARE STILL LAB WORK PENDING THAT MAY REQUIRE THE PATIENT TO NEED ANTIBIOTICS OR HOSPITILIZATION. ONOFRE STATED, "WELL WE ONLY CAME FOR THE IV FLUIDS AND SHE GOT THEM, EVERYTHING ELSE IS COMING BACK NORMAL FROM WHAT THE OTHER GIRL SAID." ATTEMPTED TO EXPLAIN THE RISKS OF PATIENT LEAVING AMA BUT WAS INTERRUPTED BY NATACHA STATING, "I KNOW THIS MEANS NOTHING, I GOT A DEGREE IN MEDICAL MANAGMENT." INFORMED NATACHA THIS FORM IS TO RELEASE THE HOSPITAL OF ALL LIABILITY BECAUSE LEAVING AMA CAN POTENTIALLY LEAD TO . ED BURNING PLANT OPERATOR MADE AWARE./SAMMY
== END 2025-01-30 01:17 | disposition home or self-care (01) ==
LOC: EDH 22:33
DX: R19.7 Diarrhea, unspecified (principal); I10 Essential (primary) hypertension; Z79.82 Long term (current) use of aspirin; Z79.899 Other long term (current) drug therapy; Z86.73 Personal history of transient ischemic attack (TIA), and cerebral infarction without residual deficits; Z88.0 Allergy status to penicillin; Z90.49 Acquired absence of other specified parts of digestive tract; Z90.710 Acquired absence of both cervix and uterus
CPT/HCPCS: 36415; 80048; 80076; 83690; 85025; 99284